=== PATIENT | male | born 1980 | race Asian ===

== ENCOUNTER 2018-04-22 23:17 | Emergency (ER) | payer BC ==
[~2018-04-22] VITALS: Ht 188 cm; Wt 83.9 kg
[~2018-04-22 23:17] MED LIST: NORVIR100 MG ORAL; NYSTATIN100000 UN1 ORAL; REYATAZ150 MG ORAL; TRUVADA 200 MG1 EAC1 ORAL
[2018-04-22 23:45] VITALS: BP 119/77
[2018-04-23] MEDS ORDERED: metroNIDAZOLE 500mg tab ORAL ONE
[2018-04-23] MEDS ORDERED: METRONIDAZOLE500 MG ORAL (00:23)
[2018-04-23 00:32] VITALS: BP 119/77
--- NOTE | 2018-04-23 03:07 | Emergency Room Report ---
History of Present Illness General Chief Complaint: Abdominal Pain Source: Patient Present Illness HPI Patient presents with complaints of sensation of abdominal bloating Also has had increased diarrhea over the past several days Patient reports that previously he had been diagnosed with a parasite and feels that he likely has a same diagnosis Denies any vomiting denies any fevers or chills denies any chest pain or shortness of breath denies any focality to the abdominal discomfort Denies any specific right lower quadrant pain Denies any dysuria frequency denies any trauma Patient reports that he has a trip coming up tomorrow Allergies: Coded Allergies: No Known Allergies (Unverified , 12/22/13) Patient History Past Medical History: see triage record Pertinent Family History: none Reviewed Nursing Documentation: PMH: Agreed; PSxH: Agreed Nursing Documentation-PMH Past Medical History: No History, Except For Hx Cardiac Problems: No - HIV Review of Systems All Other Systems: negative except mentioned in HPI Physical Exam Vital Signs Date Time Temp Pulse Resp B/P (MAP) Pulse Ox O2 Delivery O2 Flow Rate FiO2 04/22/18 23:30 98.0 107 20 119/77 95 Room Air 98.1 Sp02 EP Interpretation: reviewed, normal General Appearance: well appearing, no apparent distress Head: normocephalic, atraumatic Eyes: bilateral eye PERRL, bilateral eye EOMI ENT: hearing grossly normal, normal pharynx, TMs + canals normal, uvula midline Neck: full range of motion, supple, no meningismus, no bony tend Respiratory: lungs clear, normal breath sounds, no rhonchi, no respiratory distress, no retraction, no accessory muscle use Cardiovascular #1: normal peripheral pulses, regular rate, rhythm, no edema, no gallop, no JVD, no murmur Gastrointestinal: normal bowel sounds, non tender, soft, no mass, no organomegaly, non-distended, no guarding, no hernia, no pulsatile mass, no rebound Genitourinary: no CVA tenderness Musculoskeletal: normal inspection Neurologic: oriented x3, responsive, 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, motor strength/ tone normal, sensory intact Psychiatric: mood/affect normal Skin: normal color, no rash, warm/dry, palpation normal Lymphatic: normal inspection, no adenopathy Medical Decision Making Diagnostic Impression: Primary Impression: diarrhea ER Course Given the patient's history exam and presentation multiple differentials were considered initial stool samples were attempted to be collected however the patient was not able to produce any Patient's abdominal exam reveals a very soft abdomen Given his presentation and previous medical history Patient was placed on antibiotics he feels that he was diagnosed previously with Giardia Patient does not appear septic or toxic and will have initial conservative outpatient follow-up Last Vital Signs Date Time Temp Pulse Resp B/P (MAP) Pulse Ox O2 Delivery O2 Flow Rate FiO2 04/23/18 00:32 98.0 102 15 119/77 100 Room Air Status: improved Disposition: HOME, SELF-CARE Condition: Improved Scripts Metronidazole* (FLAGYL*) 500 Mg Tablet 500 MG ORAL THREE TIMES A DAY, #21 TAB Prov: Olinda Jeronimo DO 04/23/18 Referrals: NON PHYSICIAN (PCP) Patient Instructions: Diarrhea, Adult, [id number] Additional Instructions: Patient is provided with the discharge instructions notified to follow up with primary doctor in the next 2-3 days otherwise return to the er with any worsening symptoms. Please note that this report is being documented using [employer] technology. This can lead to erroneous entry secondary to incorrect interpretation by the dictating instrument. Olinda Jeronimo DO Apr 23, 2018 03:07
== END 2018-04-23 00:32 | disposition home or self-care (01) ==
LOC: EMR 23:40
DX: R19.7 Diarrhea, unspecified (principal); R10.9 Unspecified abdominal pain; R14.0 Abdominal distension (gaseous)
CPT/HCPCS: 99283